=== PATIENT | female | born 1940 | race Caucasian/White ===

== ENCOUNTER 2018-06-16 06:10 | Inpatient (IN) | payer OTHER ==
[2018-06-16] VITALS (8 sets, daily range): BP systolic 128–179; BP diastolic 60–84
[~2018-06-16] VITALS: Ht 162.6 cm; Wt 62.6 kg
[2018-06-16 06:33] LABS: BASOPHILS 1.1 % (0.0-2.0); HEMOGLOBIN 12.9 gm/dL (12.0-15.0); LYMPHOCYTES 31.5 % (24.0-44.0); MCH 29.2 pg (26.0-34.0); MCHC 33.2 g/dL (28.0-37.0); MCV 88.2 fL (80.0-100.0); MONOCYTES 7.6 % (1.0-8.0); PLATELET COUNT 298 thou/uL (150-400); POLYS 54.8 % (36.0-66.0); RBC 4.42 mil/uL (4.20-5.00); RDW 14.1 % (10.5-14.5); WBC 7.3 thou/uL (4.0-11.0)
[2018-06-16 06:39] LABS: ANION GAP 11 mmol/L (7-16); BUN 17 mg/dL (7-18); CALCIUM 9.1 mg/dL (8.5-10.1); CHLORIDE 103 mmol/L (98-107); CO2 27 mmol/L (21-32); CREATININE 0.8 mg/dL (0.6-1.0); GLUCOSE 97 mg/dL (74-106); POTASSIUM 3.4 mmol/L (3.5-5.1); SODIUM 141 mmol/L (136-145)
[2018-06-16 06:48] LABS: TROPONIN-I <0.06 ng/mL (<0.06)
[2018-06-16] MEDS ORDERED: VALACYCLOVIR500 MG PO (07:53)
[2018-06-16] MEDS ORDERED: VALACYCLOVIR1000 MG PO (07:53)
[2018-06-16] MEDS ORDERED: ASPIR 8181 MG PO (07:54)
[2018-06-16] MEDS ORDERED: COLESEVELAM H3.75 GM PO (07:54)
[2018-06-16] MEDS ORDERED: UNICOMPLEX M TA1 TA1 PO (07:54)
[2018-06-16 12:45] LABS: CHOLESTEROL 237 mg/dL (<200); HDL CHOLESTEROL 84 mg/dL (>40); LDL CHOLESTEROL 137 mg/dL (<100); TC:HDL 2.8 Ratio (Not establshd); TRIGLYCERIDE 82 mg/dL (<150); VLDL 16 mg/dL (<40)
--- NOTE | 2018-06-16 13:40 | NUR ---
[age] YEAR OLD FEMALE ADMITTED TO 3WEST ROOM 354 UNDER THE CARE OF DR. NAIK. PT WAS BROUGHT INTO THE ER PER EMS AFTER C/O CHEST PAIN. NITRO X1 GIVEN IN THE ER. PT DENIES ANY PAIN NOW. PT ALERT AND ORIENTED TIMES FOUR. VSS, 98%RA. PT UP WITH STANDBY ASSIST. PT TOLERATES MEALS. FAMILY AT BEDSIDE. WILL CONTINUE TO MONITOR.
[2018-06-17 00:05] VITALS: BP 144/62
--- NOTE | 2018-06-17 03:24 | NUR ---
PATIENT IS PROGRESSING QUICKLY IN CARE PLAN. VITAL SIGNS STABLE WITH PATIENT HAVING NO COMPLAINTS OF PAIN OR NAUSEA. PATIENT ASSESSED ROUTINELY FOR CHEST PAIN WHICH SHE DENIES. FULLY ALERT AND ORIENTED, PATIENT IS ABLE TO CALL APPROPRIATELY FOR NEEDS AND PARTICIPATE IN CARE. UP AD YANNICK THROUGHOUT SHIFT INCIDENT FREE, PATIENT APPEARS STRONG AND BALANCED WHEN WALKING. SHE HAS BEEN KEPT NPO FROM 0000 IN ANTICIPATION OF TODAYS CARDIAC STRESS TEST. PATIENT IS ANXIOUS FOR POSSIBLE DISCHARGE POST PROCEDURE. CONTINUE PLAN OF CARE.
[2018-06-17 04:42] LABS: ANION GAP 8 mmol/L (7-16); BUN 18 mg/dL (7-18); CALCIUM 9.2 mg/dL (8.5-10.1); CHLORIDE 103 mmol/L (98-107); CO2 29 mmol/L (21-32); CREATININE 0.8 mg/dL (0.6-1.0); GLUCOSE 92 mg/dL (74-106); SODIUM 140 mmol/L (136-145); TROPONIN-I <0.06 ng/mL (<0.06)
[2018-06-17 04:48] LABS: POTASSIUM 4.4 mmol/L (3.5-5.1)
[2018-06-17 04:58] VITALS: BP 125/56
[2018-06-17 08:00] VITALS: BP 123/65
--- NOTE | 2018-06-17 08:21 | EKG ---
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: : 1940 Requested By: Francisco Joyner Order Number: [id number] MD: Lyle Blackwell Measurements Intervals [place] Rate: 93 P: 47 DC: 190 QRS: -2 QRSD: 92 T: 35 QT: 396 QTc: 493 Interpretive Statements Sinus rhythm No significant abnormality Compared to ECG 08/07/2000 02:15:31 No significant change was found Electronically Signed On 06-17-2018 8:21:37 CDT by Lyle Blackwell [email or web address] ��������������������������������������������� <ELECTRONICALLY SIGNED> ���������������������������������������� By: Lyle Blackwell MD, [facility] ��������������������������������������������� 06/17/18 0821 8 Lyle Blackwell MD, FACC /EPI
--- NOTE | 2018-06-17 12:04 | NUR ---
PATIENT OFF FLOOR AT 0930 FOR STRESS TEST.
--- NOTE | 2018-06-17 12:08 | NUR ---
PATIENT BACK ON FLOOR, STRESS TEST COMPLETED.
[2018-06-17 12:14] VITALS: BP 137/63
--- NOTE | 2018-06-17 13:02 | HC ---
[facility] [place] [address] CONSULTATION Name: NADER ONOFRE Room #: 354-P [facility] IN M.R.#: [id number] Admission: 06/16/18 ������������������ Attend Phys: Kasi Brandon MD Discharge: ������������������ Date of : 42 Report #: [id number] THIS REPORT FOR: //name// CC: Kasi Brian HISTORY OF PRESENT ILLNESS: This is a very pleasant 77-year-old female patient who was admitted to the Emergency Room with complaints of chest discomfort. The patient and family state that she has been having some retrosternal discomfort intermittently over the last 2 weeks or so. It does not appear to be consistently exertional in nature, but stated over the last 4-5 days, going up the basement stairs has caused her to bring this discomfort on. She knows that it is a left chest and substernal fullness sensation. It is quite short in duration. She has also noted that she has had some left upper extremity numbness. She described having several episodes with some shortness of breath. The patient took one of her 's nitro, which decreased the discomfort to 5/10 on the day of admission. She got another one when presented to the Emergency Room and became pain-free. The patient apparently has a history of extensive dyslipidemia and sensitivity to statins. She underwent catheterization in the distant past and demonstrated a non-significant blockage. She had a stress test apparently 2 years ago, which was negative, but does not remember the exact location and extent of lesions. She denies any orthopnea or PND. No dependent or nondependent edema. No syncope. PAST MEDICAL HISTORY: Significant for: 1. Coronary artery disease. 2. Dyslipidemia with statin intolerance and LDLs apparently greater than 190 mg/dL. 3. Fibromyalgia. 4. Hiatus hernia with gastroesophageal reflux disease. 5. Episode of an irregular heartbeat last year. ALLERGIES: PENICILLINS AND SULFA. PAST SURGICAL HISTORY: Significant for cardiac catheterization, as stated above. MEDICATIONS: Medications at home are valacyclovir, Unicomplex multivitamin, aspirin 81 mg daily and Welchol. LABORATORY DATA: Laboratory demonstrates a potassium of 3.4, BUN and creatinine of 17 and 0.8. H and H were 12.9 and 39.0 with a platelet count of 298,000. REVIEW OF SYSTEMS: Except for the symptoms previously mentioned and those commensurate with comorbid state, the 10-point review of systems is negative. [facility] [address] [place] [address] CONSULTATION Name: NADER ONOFRE Room #: 354-P [facility] IN ..#: [id number] Admission: 06/16/18 ������������������ Attend Phys: Kasi Brandon MD Discharge: ������������������ Date of : 42 Report #: [id number] SOCIAL HISTORY: The patient is former smoker. She does not consume alcohol. She does not follow dietary restrictions or exercise regimen. DIAGNOSTIC STUDIES: Electrocardiogram demonstrates normal sinus rhythm, nonspecific ST-T wave changes. RADIOLOGIC DATA: Chest x-ray failed to demonstrate any acute processes. PHYSICAL EXAMINATION: GENERAL: Well-developed, well-nourished female, resting comfortably in no acute distress. VITAL SIGNS: Noted and reviewed in the chart. HEENT: Normocephalic, atraumatic. Pupils are equal, round, reactive to light and accommodation. Extraocular muscles are intact. Sclerae and conjunctivae are anicteric. NECK: JVD is normal. Carotid upstrokes are bilaterally symmetrical. No bruits are heard. No thyromegaly. No lymphadenopathy. LUNGS: Clear to auscultation. No wheezes, rhonchi or crackles. No CVA tenderness. CARDIAC: Demonstrates a regular rhythm. Normal first and second heart sounds. No ventricular or atrial gallops, no rubs noted. No murmurs. No lifts or heaves, PMI normal. ABDOMEN: Soft, nontender and nondistended. Normal bowel sounds. EXTREMITIES: Without cyanosis, clubbing or edema. Distal pulses are intact. DTR symmetrical. NEUROLOGIC: Cranial nerves 2-12 are grossly normal and symmetrical. PSYCHIATRIC: Alert, oriented with normal affect. SKIN: Warm and dry. IMPRESSION AND PLAN: 1. Chest pain in an individual that has coronary artery disease. The fact she had a negative perfusion scan several years ago does not mean that she has not had progression of disease, especially when she is unable to tolerate statins and LDLs still are markedly elevated. She does follow with Dr. Blanton and we will discuss that below. In view of the chest discomfort, it is reasonable to obtain objective evidence of ischemia with a perfusion scan. We will make further recommendations subsequent to those findings. 2. Dyslipidemia. She does follow up with Dr. Blanton's lipid clinic, but is only on Welchol. I discussed with her the fact that she would be an excellent candidate for PCSK-9 inhibitors and we should initiate those after discharge. She does voice understanding and is interested in proceeding with that. 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 I did remark that esophageal spasm does get improved by sublingual nitro, but in view of her comorbidities, this may be a lower likelihood. 4. Fibromyalgia, unlikely the etiology. [facility] [address] [place] [address] CONSULTATION Name: NADER ONOFRE Room #: 354-P ADM IN M.R.#: [id number] Admission: 06/16/18 ������������������ Attend Phys: Kasi Brandon MD Discharge: ������������������ Date of : 42 Report #: [id number] 5. Irregular heartbeat, uncertain what that meant. We would need to get records from that hospitalization so that we can further characterize, but I doubt that had any significance to her current symptomatology. ��������������������������������������������� <ELECTRONICALLY SIGNED> ���������������������������������������� By: Lorenzo Srinivasan MD ��������������������������������������������� 06/17/18 1302 0040 0109 Lorenzo Srinivasan MD /nt
[2018-06-17 15:18] VITALS: BP 137/66
--- NOTE | 2018-06-17 16:42 | NUR ---
ASSESSMENT: CM REVIEWED CHART AND MET WITH PATIENT AT THE BEDSIDE. PT IS ALERT AND ORIENTED X4. PT REPORTS THAT SHE LIVES IN A HOME WITH HER . PT HAS TWO STEPS TO ENTER WITH NO HANDRAILS. PT REPORTS ONCE INSIDE SHE HAS STEPS TO THE BASEMENT FOR LAUNDRY AND IS A FULL FLIGHT WITH HANDRAILS. PT REPORTS BEING FULLY INDEPENDENT WITH ADLS AND AMBULATION. PT DENIES HAVING HH IN THE PAST AND HAS NEVER BEEN TO SNF/POST ACUTE CARE. CM DISCUSSED ROLE. PT DOES NOT ANTICIPATE HAVING ANY NEEDS AT DISCHARGE.
--- NOTE | 2018-06-17 17:51 | NUR ---
PATIENT ALERT AND ORIENTED X4, HEADACHE CONTROLLED WITH MEDICATION. SINUS RHYTHM ON SMALLTALK DEVELOPER. UP INDEPENDENTLY. NO COMPLAINTS OF CHEST PAIN. FAMILY AND PATIENT UPDATED ON THE PLAN OF CARE. NO SIGNS OF ACUTE DISTRESS NOTED AT THIS TIME. WILL CONTINUE TO MONITOR.
[2018-06-17 20:10] VITALS: BP 124/54
--- NOTE | 2018-06-18 03:15 | NUR ---
PATIENT PROGRESSING IN CARE PLAN. VITAL SIGNS STABLE WITH PATIENT HAVING NO COMPLAINTS OF CHEST PAIN OR NAUSEA. FULLY ORIENTED, PATIENT IS ABLE TO CALL APPROPRIATELY FOR REQUESTS. PATIENT IS PREPARED FOR TODAYS POSSIBLE ANGIOGRAM. UP AD YANNICK THROUGHOUT SHIFT, PATIENT WAS ABLE TO TAKE SHOWER INCIDENT FREE. CONTINUE PLAN OF CARE.
[2018-06-18 04:10] VITALS: BP 148/73
[2018-06-18 07:46] VITALS: BP 138/67
--- NOTE | 2018-06-18 08:06 | NUR ---
PT A0X4, AMB INDEPENDENTLY, FAMILY AT BEDSIDE USPET ABOUT BEING TOLD AT SOME POINT THERE WOULD BE A CARDIAC CATH DONE, NO ORDERS, WILL CALL THIS A.M. TO FIND OUT ANSWERS. PT HAS BEEN ON CLEAR LIQUIDS ONLY. ENCOURAGED BOTH TO USE CALL LIGHT FOR ANY NEEDS.
--- NOTE | 2018-06-18 08:22 | NUR ---
PHYSICIAN CALL: CALLED DR. DERAS'S OFFICE TO GIVE FYI ON FAMILY NEEDING TO KNOW ABOUT POSSIBLE CARDIAC CATH BEING DONE TODAY.
--- NOTE | 2018-06-18 10:53 | NUR ---
PT SIGNED CONSENT, FAMILY HANDED BACK I LEFT ROOM TO RETURN SHORTLY, RETURNED BACK TO ROOM AND PT GONE. FAMILY DELIGHTED TO HAVE INFORMATION AND SEE ACTIVITY
--- NOTE | 2018-06-18 11:56 | NUR ---
CALLED 2N TO GIVE REPORT, NURSE IN THE MIDST OF ACTIVITIES AND WILL RETURN CALL BACK FOR REPORT SHORTLY, BELONGINGS WILL BE TAKEN DOWN SHORTLY
[2018-06-18 12:30] VITALS: BP 138/67
--- NOTE | 2018-06-18 12:30 | NUR ---
RECEIVED PT FROM AUTOMATION CONTROL INTEGRATOR. VSS NSR. R GROIN MYNX SITE WITHOUT HEMATOMA OR BRUIT. PT INSTRUCTED BR WITH R LEG STRAIGHT FOR 3 HOURS. SEE DATA FLOW SHEET FOR FREQUENT VITAL SIGNS AND R GROIN CHECKS. NO C/O CHEST PAIN. WILL CONTINUE TO MONITER AND CARE FOR PT PER PLAN OF CARE
--- NOTE | 2018-06-18 18:47 | NUR ---
PT REMAINS STABLE POST CATH, R GROIN MYNX SITE WITHOUT HEMATOMA OR BRUIT. UP IN ROOM TO BRP, VODING QS. NSR NO C/O CHEST PAIN. WILL CONTINUE TO MONITER AND CARE FOR PTPER PLAN OF CARE
[2018-06-18 20:21] VITALS: BP 122/52
--- NOTE | 2018-06-19 02:53 | NUR ---
ASSUMED CARE 1900. VSS. ASSESSMENT CHARTED. PT DENIES CP OR CONCERNS. R GROIN MYNX CDI NO HEMATOMA NO BRUIT. UP TO BATHROOM ST BY AT BEGINING OF SHIFT, PT STEADY. PT HOPEFUL FOR D/C THIS AM. WILL CONTINUE TO MONITOR AND WITH POC.
[2018-06-19 03:35] VITALS: BP 144/59
[2018-06-19 08:37] VITALS: BP 116/58
[2018-06-19] MEDS ORDERED: NITROGLYCERIN0.4 MG SUBLING (09:51)
[2018-06-19] MEDS ORDERED: BRILINTA90 MG PO (09:51)
[2018-06-19] MEDS ORDERED: REPATHA SU140 MG/1 M INJECTION (11:07)
[2018-06-19 12:00] VITALS: BP 116/45
[2018-06-19 13:32] VITALS: BP 116/45
--- NOTE | 2018-06-19 14:22 | NUR ---
PT DISCHARGED APPROX 1410. PT ALERT AND ORIENTED X4. DENIED PAIN AND SOA. VSS. SPOUSE AT BEDSIDE FOR DISCHARGE TEACHING TO BOTH. BOTH DENY QUESTIONS OR CONCERNS REGARDING DISCHARGE MEDS, F/U APPT, DIET, ACTIVITY LEVEL, GENERAL POST HOSPITAL CARE, POST CATH INFO, POST CATH SITE CARE TO RIGHT GROIN. SITE WNL AT TIME OF DISCHARGE. IV OUT, TELE OFF. HOSPITAL STAFF ESCORTED PT OUT VIA W/C.
--- NOTE | 2018-06-20 14:13 | CATHLAB ---
[facility] [address] [place] [address] INVASIVE PROCEDURE REPORT Name: NADER ONOFRE Room #: 219-P DIS IN M.R.#: [id number] ������������� Admission: 06/16/18 ������������� Attend Phys: Kasi Brandon MD Discharge: ��� 06/19/18 ������������� ��� Date of : 42 Date of Service: 06/20/18 1413 �� Report #: [id number] �������� ��������������������������������������������[id number] THIS REPORT FOR: //name// APPROVED REPORT Study performed: 06/18/2018 10:57:18 Patient Details Patient Status: In-Patient Room #: The patient is a 77 year-old female Event Personnel Lorenzo Srinivasan Tennis Professional, Yazmin Gardner RTR, RETAIL PERSONAL BANKER Monitor, Gisell Booth RN RN, Adri Adams RN RN, Wilmer Lozano Scrrenetta Procedures Performed Art Access - R femoral artery* Left Heart Cath w/or w/o Coronaries [id number] [facility] CAROL Place w/wo Plasty Single RCA 178801 01009 Initial Mod Sed Same Phys/QHP Gr5y 082570 Hemostasis w/ Mynx 88124 Mod Sed Same Phys/QHP Ea 810541, supervision of conscious sedation Indication Positive stress test, Chest pain Procedure Narrative The Right Groin^ was infiltrated with 1% Lidocaine subcutaneous anesthesia. A PINNACLE 6FR TIF Sheath #[id number] sheath was inserted into the RFA^. Coronary angiography was performed using coronary diagnostic catheters. The right coronary system was accessed and visualized with a JR4 catheter. The left coronary system was accessed and visualized with a JL4 catheter. Left ventricular/Aortic Valve gradient assessed via catheter pullback. Closure device was deployed with a 6 Fr MYNXGRIP 6/7F #[id number]. The patient tolerated the procedure well and there were no complications associated with the procedure. There was no hematoma. Intraoperative Conscious Sedation Sedation start time: 11:03 Case end Time: 11:51 Versed 2 mg Fluoro Time: 8.50 minutes Dose: DAP 7732.00 cGycm2 1379 mGy [facility] [address] [place] [address] INVASIVE PROCEDURE REPORT Name: NADER ONOFRE Room #: 219-P [facility] IN ..#: [id number] ������������� Admission: 06/16/18 ������������� Attend Phys: Kasi Brandon MD Discharge: ��� 06/19/18 ������������� ��� Date of : 42 Date of Service: 06/20/18 1413 �� Report #: [id number] �������� ��������������������������������������������[id number] Contrast Type and Amount: Omnipaque 85 ml Coronary Angiography The patient's coronary anatomy is right dominant. Diagnostic Cath Left Main Normal origin and caliber bifurcates left anterior descending left circumflex. This a mild 20-30% proximal eccentric lesion which is not flow-limiting. Beyond this there is no obstructive lesions present LAD Small to moderate caliber type II vessel which tapers rapidly at the apex to be small string-like vessel. There is luminal irregularities through its course in the anterior interventricular sulcus. Giving rise to small diagonal branches chest proximal lesions of at least 75% but are less than half a millimeter in diameter Circumflex Moderate caliber vessel coursing laterally with luminal irregularities principally a marginal branches several branches noted. Minimal posterior wall circulation with a string-like vessel Right Coronary Large-caliber vessel of normal origin courses in AV groove giving rise to a small RV marginal branch. Prior to the crux of the heart is a 95+ percent concentric lesion before the rising of a PDA and a posterior circulation consisting of a small posterior wall branch and a posterior lateral branch. R PDA small sulcus was the apex free of high-grade disease RPLV Wall caliber vessel free of high-grade disease with a terminal bifurcating region artery JVP noticed Hemodynamics The aortic pressure is 138/55 mmHg with a mean of 95 mmHg. The left ventricular pressure is 134/10 mmHg with a mean of mmHg. The left ventricular end diastolic pressure is 22 mmHg. PCI Technique After angiography was performed indications for percutaneous vascular patient was identified. The diagnostic catheters were then exchanged for a standard right guide and engaged the right coronary ostium. Utilizing a 014 wire was back loaded onto a 3.0 x 15 mm CAROL stent. Angiomax bolus and drip will as normal saline fluids were issued per my protocol. The stent was positioned across the lesion not impinging on the posterior descending arteries origin or the posterior lateral branch. This was inflated to 12 krys and felt to be suboptimally dilated and was taken to 18-20 krys for full dilatation. A sponge diver dilatation was carried forth to visual satisfactory findings. There is no loss of side branch distal embolization or luminal disruption [facility] [address] [place] [address] INVASIVE PROCEDURE REPORT Name: JEMIMADERRICK Room #: 219-P [facility] IN M.R.#: [id number] ������������� Admission: 06/16/18 ������������� Attend Phys: Kasi Brandon MD Discharge: ��� 06/19/18 ������������� ��� Date of : 42 Date of Service: 06/20/18 1413 �� Report #: [id number] �������� ��������������������������������������������[id number] noted. Patient tolerated procedure well. Brilinta was given per protocol. No complications. PCI Technique Lesion Percutaneous coronary intervention was performed on the mistal right coronary artery. A LAUNCHER 6FR JR 4 #[id number] Guide Catheter was used to engage the ostium. A Luge Wire (J) .014 X 182CM #[id number] Interventional Guidewire was used to cross the lesion. STENT DEPLOYMENT A drug-eluting stent RESOLUTE CUATE OTW 3.5 X 15 #[id number] was inserted and inflated up to 12.00atm for 10seconds. Additional Inflation: 18.00atm for 10seconds. Additional Inflation: 21.00atm for 20seconds. Conclusion 1. Coronary disease, severe right coronary artery lesion 2. Successful percutaneous revascularization and stenting with a 3.0 mm Medtronic CAROL resolute stent 2. Abnormal hemodynamics with elevated left ventricular end-diastolic pressures Recommendations Cardiac Risk Reduction Program Medical Therapy Dual antiplatelet therapy is initiated ��������������������������������������������� <ELECTRONICALLY SIGNED> ���������������������������������������� By: Lorenzo Srinivasan MD ��������������������������������������������� 06/20/18 1413 12 12 Lorenzo Srinivasan MD /INF
== END 2018-06-19 14:18 | disposition home or self-care (01) | DRG 246 ==
LOC: ER 06:10 → 3W 08:07 → 2N 06-18 12:35 → ENTRNSPT 06-19 14:04 → EDTRNSPTSTS 06-19 14:06 → 2N 06-19 14:18
PROVIDERS: Emergency Medicine; Internal Medicine; ADMIT Hospitalist
DX: I25.110 Atherosclerotic heart disease of native coronary artery with unstable angina pectoris (principal); I50.33 Acute on chronic diastolic (congestive) heart failure; I24.9 Acute ischemic heart disease, unspecified; E78.5 Hyperlipidemia, unspecified; K21.9 Gastro-esophageal reflux disease without esophagitis; K30 Functional dyspepsia; M79.7 Fibromyalgia; Z88.0 Allergy status to penicillin; Z88.2 Allergy status to sulfonamides; Z87.891 Personal history of nicotine dependence; Z79.82 Long term (current) use of aspirin; Z79.899 Other long term (current) drug therapy
CPT/HCPCS: 10081; 10879

== ENCOUNTER → 2019-08-13 | Outpatient (CLI) | payer OTHER ==
[~2019-08-13] MED LIST: ASPIR 8181 MG PO; BRILINTA90 MG PO; COLESEVELAM H3.75 GM PO; NITROGLYCERIN0.4 MG SUBLING; REPATHA SU140 MG/1 M INJECTION; UNICOMPLEX M TA1 TA1 PO; VALACYCLOVIR1000 MG PO; VALACYCLOVIR500 MG PO
== END ==
LOC: SJCVC 12:38
DX: R07.9 Chest pain, unspecified (principal); I25.10 Atherosclerotic heart disease of native coronary artery without angina pectoris; I10 Essential (primary) hypertension; E78.5 Hyperlipidemia, unspecified

== ENCOUNTER → 2019-09-03 | Outpatient (CLI) | payer OTHER | LOC: SJCVCIMAG 09:12 | DX: I08.3 Combined rheumatic disorders of mitral, aortic and tricuspid valves (principal); I49.3 Ventricular premature depolarization; I25.10 Atherosclerotic heart disease of native coronary artery without angina pectoris; I10 Essential (primary) hypertension; E78.5 Hyperlipidemia, unspecified; Z90.49 Acquired absence of other specified parts of digestive tract; Z79.899 Other long term (current) drug therapy ==

== ENCOUNTER 2019-09-18 22:26 | Emergency (ER) | payer OTHER ==
[~2019-09-18] VITALS: Ht 162.6 cm; Wt 60.8 kg
[2019-09-18 23:31] LABS: ABSOLUTE NEUTROPHILS 6.5 thou/uL (1.4-8.2); BASOPHILS 0.7 % (0.0-2.0); EOSINOPHILS 3.5 % (0.0-3.0); HEMATOCRIT 38.9 % (37.0-47.0); HEMOGLOBIN 13.1 gm/dL (12.0-15.0); LYMPHOCYTES 18.5 % (24.0-44.0); MCH 30.1 pg (26.0-34.0); MCHC 33.6 g/dL (28.0-37.0); MCV 89.5 fL (80.0-100.0); MONOCYTES 7.6 % (1.0-8.0); PLATELET COUNT 253 thou/uL (150-400); POLYS 69.7 % (36.0-66.0); RBC 4.34 mil/uL (4.20-5.00); RDW 13.6 % (10.5-14.5); WBC 9.3 thou/uL (4.0-11.0)
[2019-09-18] MEDS ORDERED: ISOSORBIDE DINI30 MG PO (23:35)
[2019-09-18] MEDS ORDERED: TYLENOL PO (23:35)
[2019-09-18] MEDS ORDERED: PLAVIX 75 MG TA75 MG PO (23:36)
[2019-09-18] MEDS ORDERED: CALCIUM 600 +1 EAC4 PO (23:36)
[2019-09-18] MEDS ORDERED: OMEPRAZOLE40 MG PO (23:37)
[2019-09-18] MEDS ORDERED: DORYX MPC120 MG PO (23:38)
[2019-09-18 23:48] LABS: CALCIUM 8.8 mg/dL (8.5-10.1); MAGNESIUM 1.9 mg/dL (1.8-2.4); POTASSIUM 3.9 mmol/L (3.5-5.1)
[2019-09-19 00:53] LABS: URINE BILIRUBIN NEGATIVE (Negative); URINE BLOOD NEGATIVE (Negative); URINE CLARITY CLEAR; URINE COLOR YELLOW; URINE GLUCOSE-RANDOM* NEGATIVE (Negative); URINE KETONES NEGATIVE (Negative); URINE LEUKOCYTES-REFLEX TRACE (Negative); URINE NITRITE-REFLEX NEGATIVE (Negative); URINE PROTEIN (DIPSTICK) NEGATIVE (Negative); URINE UROBILINOGEN 0.2 E.U./dl (0.2-1.0)
[2019-09-19 01:51] VITALS: BP 134/57
--- NOTE | 2019-09-20 10:07 | EKG ---
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
== END 2019-09-19 02:02 | disposition home or self-care (01) ==
LOC: ER 22:26
PROVIDERS: Emergency Medicine
DX: R11.2 Nausea with vomiting, unspecified (principal); M79.7 Fibromyalgia; Z87.891 Personal history of nicotine dependence; Z88.0 Allergy status to penicillin; Z88.2 Allergy status to sulfonamides; Z79.899 Other long term (current) drug therapy; Z79.82 Long term (current) use of aspirin

== ENCOUNTER 2020-01-07 08:16 | Emergency (ER) | payer OTHER ==
[~2020-01-07] VITALS: Ht 162.6 cm; Wt 60.8 kg
[~2020-01-07 08:16] MED LIST changes: +CALCIUM 600 +1 EAC4 PO; +DORYX MPC120 MG PO; +ISOSORBIDE DINI30 MG PO; +OMEPRAZOLE40 MG PO; +PLAVIX 75 MG TA75 MG PO; +TYLENOL PO
[2020-01-07 09:00] LABS: ABSOLUTE NEUTROPHILS 5.1 thou/uL (1.4-8.2); BASOPHILS 0.9 % (0.0-2.0); EOSINOPHILS 2.7 % (0.0-3.0); HEMATOCRIT 38.6 % (37.0-47.0); HEMOGLOBIN 12.9 gm/dL (12.0-15.0); LYMPHOCYTES 22.8 % (24.0-44.0); MCH 29.3 pg (26.0-34.0); MCHC 33.4 g/dL (28.0-37.0); MCV 87.8 fL (80.0-100.0); PLATELET COUNT 297 thou/uL (150-400); POLYS 67.6 % (36.0-66.0); RDW 13.6 % (10.5-14.5); WBC 7.6 thou/uL (4.0-11.0)
[2020-01-07 09:08] LABS: ANION GAP 9 mmol/L (7-16); BUN 14 mg/dL (7-18); CALCIUM 9.3 mg/dL (8.5-10.1); CHLORIDE 104 mmol/L (98-107); CO2 28 mmol/L (21-32); CREATININE 0.9 mg/dL (0.6-1.0); GLUCOSE 97 mg/dL (74-106); SODIUM 141 mmol/L (136-145)
[2020-01-07 09:25] LABS: ALBUMIN 4.3 g/dL (3.4-5.0); DIRECT BILIRUBIN 0.1 mg/dL (<0.1-0.2); SGOT 22 U/L (15-37); SGPT 24 U/L (30-65); TOTAL BILIRUBIN 0.4 mg/dL (0.2-1.0); TOTAL PROTEIN 8.2 g/dL (6.4-8.2); TROPONIN-I <0.06 ng/mL (<0.06)
--- NOTE | 2020-01-07 09:34 | EKG ---
[facility] [place] [address] [place] [address] ELECTROCARDIOGRAM REPORT Name: NADER ONOFRE Room #: [facility]#: [id number] Admission: 01/07/20 Attend Phys: Discharge: Date of : 42 Report #: [id number] THIS REPORT FOR: cc: Erick Brian MD, Sequita MD Santiago,Malvin ROSARIO [facility] ~ THIS REPORT FOR: //name// [facility] ED Test Date: 2020-01-07 Test Time: 08:40:43 Pat Name: NADER ONOFRE Department: Room: Gender: F [employer]: : 1940 Requested By: Adri Serrano Order Number: [id number] MD: Malvin Vanegas Measurements Intervals [place] Rate: 83 P: 57 [place]: 160 QRS: -4 QRSD: 87 T: 43 QT: 381 QTc: 448 Interpretive Statements Sinus rhythm Compared to ECG 09/18/2019 23:06:08 No significant changes Electronically Signed On 01-07-2020 9:34:12 CDT by Malvin Vanegas [email or web address] <ELECTRONICALLY SIGNED> By: Malvin Vanegas MD, [facility] 01/07/20933 9 9 Malvin Vanegas MD, FACC /EPI
[2020-01-07] MEDS ORDERED: MOBIC7.5 MG PO (10:24)
[2020-01-07 11:09] VITALS: BP 108/57
== END 2020-01-07 11:09 | disposition home or self-care (01) ==
LOC: ER 08:16
PROVIDERS: Emergency Medicine
DX: R07.89 Other chest pain (principal); I25.2 Old myocardial infarction; K21.9 Gastro-esophageal reflux disease without esophagitis; M79.7 Fibromyalgia; Z79.899 Other long term (current) drug therapy; Z88.0 Allergy status to penicillin; Z88.2 Allergy status to sulfonamides; Z79.82 Long term (current) use of aspirin; Z87.891 Personal history of nicotine dependence

== ENCOUNTER → 2020-08-11 | Outpatient (CLI) | payer OTHER ==
[~2020-08-11] MED LIST changes: +MOBIC7.5 MG PO
== END ==
LOC: SJCVC 10:14
PROVIDERS: ATTEND Internal Medicine
DX: R07.9 Chest pain, unspecified (principal); I25.10 Atherosclerotic heart disease of native coronary artery without angina pectoris; I10 Essential (primary) hypertension; E78.5 Hyperlipidemia, unspecified; M54.40 Lumbago with sciatica, unspecified side; Z90.49 Acquired absence of other specified parts of digestive tract; Z90.710 Acquired absence of both cervix and uterus; Z98.890 Other specified postprocedural states; Z88.0 Allergy status to penicillin; Z88.8 Allergy status to other drugs, medicaments and biological substances; Z79.82 Long term (current) use of aspirin; Z79.899 Other long term (current) drug therapy

== ENCOUNTER → 2020-08-16 | Outpatient (CLI) | payer OTHER | LOC: SJCVCIMAG 10:24 | PROVIDERS: ATTEND Internal Medicine | DX: I08.8 Other rheumatic multiple valve diseases (principal); I11.9 Hypertensive heart disease without heart failure; I25.10 Atherosclerotic heart disease of native coronary artery without angina pectoris ==

== ENCOUNTER 2020-10-06 02:58 | Inpatient (IN) | payer OTHER ==
[2020-10-06] VITALS (7 sets, daily range): BP systolic 119–193; BP diastolic 50–85
[~2020-10-06] VITALS: Ht 162.6 cm; Wt 58.8 kg
[2020-10-06 03:45] LABS: ABSOLUTE NEUTROPHILS 4.5 thou/uL (1.4-8.2); BASOPHILS 0.8 % (0.0-2.0); EOSINOPHILS 2.9 % (0.0-3.0); HEMATOCRIT 39.3 % (37.0-47.0); HEMOGLOBIN 13.1 gm/dL (12.0-15.0); LYMPHOCYTES 34.3 % (24.0-44.0); MCH 29.6 pg (26.0-34.0); MCHC 33.3 g/dL (28.0-37.0); MONOCYTES 8.8 % (1.0-8.0); PLATELET COUNT 300 thou/uL (150-400); POLYS 53.2 % (36.0-66.0); RBC 4.41 mil/uL (4.20-5.00); RDW 13.9 % (10.5-14.5); WBC 8.5 thou/uL (4.0-11.0)
[2020-10-06 03:58] LABS: URINE BILIRUBIN NEGATIVE (Negative); URINE BLOOD NEGATIVE (Negative); URINE CLARITY CLEAR; URINE COLOR YELLOW; URINE GLUCOSE-RANDOM* NEGATIVE (Negative); URINE KETONES NEGATIVE (Negative); URINE LEUKOCYTES-REFLEX TRACE (Negative); URINE NITRITE-REFLEX NEGATIVE (Negative); URINE PROTEIN (DIPSTICK) NEGATIVE (Negative); URINE UROBILINOGEN 0.2 E.U./dl (0.2-1.0)
[2020-10-06 04:00] LABS: ANION GAP 8 mmol/L (7-16); BUN 21 mg/dL (7-18); CALCIUM 9.2 mg/dL (8.5-10.1); CHLORIDE 105 mmol/L (98-107); CO2 30 mmol/L (21-32); GLUCOSE 92 mg/dL (74-106); POTASSIUM 3.9 mmol/L (3.5-5.1); SODIUM 143 mmol/L (136-145)
[2020-10-06 04:11] LABS: ALBUMIN 4.1 g/dL (3.4-5.0); SGOT 22 U/L (15-37); SGPT 20 U/L (14-59); TOTAL BILIRUBIN 0.3 mg/dL (0.2-1.0); TOTAL PROTEIN 8.1 g/dL (6.4-8.2); TROPONIN-I <0.06 ng/mL (<0.06)
--- NOTE | 2020-10-06 06:45 | EKG ---
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1940 Requested By: Ramon Francis Order Number: [id number] MD: Malvin Vanegas Measurements Intervals [place] Rate: 96 P: 60 [place]: 207 QRS: 2 QRSD: 85 T: 42 QT: 346 QTc: 438 Interpretive Statements Sinus rhythm Probable left atrial enlargement Baseline wander in lead(s) V6 Compared to ECG 01/07/2020 08:40:43 No significant changes Electronically Signed On 10-06-2020 6:45:28 CDT by Malvin Vanegas [email or web address] <ELECTRONICALLY SIGNED> By: Malvin Vanegas MD, [facility] 10/06/20 0645 D: 06/303 3 Malvin Vanegas MD, FACC /EPI
--- NOTE | 2020-10-06 08:58 | NUR ---
ASSUMED PT CARE AT 0800. PT REST AT THIS TIME. PT STATES SHE TOOK HER IMDUR THIS MORNING. NUC MED NOTIFIED, NUC MED STATES PT CANNOT HAVE HER STRESS TEST TODAY,THAT IT WILL BE TOMORROW BEFORE THEY CAN DO IT DUE TO THE IMDUR. MICA BLACKWELL NOTIFIED AND WILL TALK WITH DR DERAS TO FIGURE OUT A PLAN FOR PATIENT. ASSESSMENT PERFORMED CHARTED. VSS. WILL CONTINUE TO MONITOR AND FOLLOW POC.
[2020-10-06 09:26] LABS: CHOLESTEROL 164 mg/dL (<200); HDL CHOLESTEROL 84 mg/dL (>40); LDL CHOLESTEROL 61 mg/dL (<100); TRIGLYCERIDE 98 mg/dL (<150); VLDL 20 mg/dL (<40)
--- NOTE | 2020-10-06 12:08 | NUR ---
PT IN BED, PT UPDATED ON PLAN OF CARE WITH STRESS TEST MOVED TO TOMORROW MORNING. PTS ASSESSMENT UNCHANGED. VSS. WILL CONTINUE TO MONITOR AND FOLLOW POC.
--- NOTE | 2020-10-06 15:22 | NUR ---
Patient admits with chest pain. Patients spouse at bedside. Reside in home with steps to basement for laundry. Patient reports independent with adls and self care. cont to drive. She has a PCP Dr Erick Brian. Anticipate no needs at ms. casemgt following.
--- NOTE | 2020-10-06 16:15 | NUR ---
ASSESSMENT UNCHANGED. PT RESTING. VSS. WILL CONTINUE TO MONITOR AND FOLLOW POC.
--- NOTE | 2020-10-07 03:58 | NUR ---
PT IS ALERT AND ORIENTED X4. LUNGS ARE CLEAR ON ROOM AIR. UP AD YANNICK IN ROOM. PLANS FOR A STRESS TEST TODAY BEEN NPO FOR TESTING LIGHT SNACK BEFORE BEDTIME. SLEEPING CALL LIGHT WITIN REACH AND DENIES ANY CHEST PAIN AT THIS TIME PER NURSING.
[2020-10-07 04:18] VITALS: BP 169/72
[2020-10-07 07:55] VITALS: BP 137/66
[2020-10-07 12:00] VITALS: BP 150/68
[2020-10-07 15:50] VITALS: BP 108/59
--- NOTE | 2020-10-07 18:44 | NUR ---
PATIENT DENIES CHEST PAIN OR SHORTNESS OF BREATH. PATIENT DID HAVE C/O HEADACHE EARLY THIS SHIFT. PATIENT HAD STRESS TEST WITHOUT COMPLICATION.
[2020-10-07 19:59] VITALS: BP 113/57
[2020-10-08 04:19] VITALS: BP 153/90
--- NOTE | 2020-10-08 07:27 | NUR ---
ASSUMED CARE OF PT AT 1900. PT DENIES PAIN, A/OX4. PT CONCERNED ABOUT OBTAINING MORE INFORMATION REGARDING CP. PT WAS NPO AFTER MIDNOC. PT EDUCATED ON INFORMING NURSING STAFF OF PAIN PER POC, PT STATED UNDERSTANDING.
[2020-10-08 07:40] VITALS: BP 150/65
[2020-10-08] MEDS ORDERED: METOPROLOL SUCC25 M1 PO (10:58)
[2020-10-08 11:00] VITALS: BP 127/77
[2020-10-08 15:32] VITALS: BP 127/77
[2020-10-08 15:40] VITALS: BP 111/64
--- NOTE | 2020-10-08 16:47 | NUR ---
Patient went to CCL no stents placed per report. Orders to DC to home. Venous sheath removed from right drew, no bleeding or hematoma noted. Pressure held for approx. 5-10 minutes without complications. Patient continues to deny chest pain or shortness of breath. Patient DC via wheel chair to private vehicle with .
== END 2020-10-08 16:32 | disposition home or self-care (01) | DRG 305 ==
LOC: ER 02:58 → EROBS 05:32 → 2N 05:32
PROVIDERS: Emergency Medicine; Nurse Practitioner Family; ADMIT Internal Medicine; ATTEND Internal Medicine
DX: I16.0 Hypertensive urgency (principal); I25.10 Atherosclerotic heart disease of native coronary artery without angina pectoris; R07.9 Chest pain, unspecified; E78.5 Hyperlipidemia, unspecified; K44.9 Diaphragmatic hernia without obstruction or gangrene; M79.7 Fibromyalgia; R53.81 Other malaise; G89.29 Other chronic pain; M81.0 Age-related osteoporosis without current pathological fracture; Z95.5 Presence of coronary angioplasty implant and graft; I25.2 Old myocardial infarction; Z88.0 Allergy status to penicillin; Z88.2 Allergy status to sulfonamides; Z87.891 Personal history of nicotine dependence; Z79.82 Long term (current) use of aspirin; Z79.899 Other long term (current) drug therapy
CPT/HCPCS: 10081